=== PATIENT | male | born 1995 | race Caucasian/White ===

== ENCOUNTER 2025-01-10 16:32 | Emergency (ER) | payer OTHER, SELFPAY ==
[2025-01-10 16:38] VITALS: BP 143/89; PULSE 81; RESP 16; TEMP 36.6; O2SAT 98
[2025-01-10 16:46] VITALS: BP 143/89; PULSE 81; RESP 16; TEMP 36.6; O2SAT 98
--- NOTE | 2025-01-10 17:30 | W.ED.GENAD ---
Discharge Plan Disposition Patient Disposition: [facility] Condition: Stable Discharge Details Clinical Impression: Encounter for prophylactic administration of rabies immune globulin, Bitten by raccoyamileth almendarez Primary Care Provider: Unknown,Unknown ED Provider: Lynne Martini Discharge Instructions Instructions: Animal Bites ED Additional Instructions: You were seen in the emergency today for evaluation after having been bitten by a raccoon several months ago. In our department had a full physical examination performed which was reassuring. You received your first rabies vaccine as well as your dose of rabies immunoglobulin. You will require repeat doses of the vaccine on the following dates: Monday, January 13 (day 3) January 17 (day 7) Monday, January 24 (day 14). I have placed an order for these repeat doses to be given in our infusion clinic at the hospital. If your [facility] is able to acquire doses of the rabies vaccine you can instead receive it on these dates at that location. Please follow-up with your primary care provider in the next few days to discuss this visit and any symptoms that change, worsen, or persist. Thank you for allowing us to be part of your care. HPI General Mode of arrival: ambulatory. Date/Time Provider Initiated Documentation: 01/10/25 16:49. Limitations to Documentation: no limitations. Information obtained by: patient, police and old records reviewed. HPI Narrative: This is a 29-year-old male patient presenting for evaluation for rabies prophylaxis after raccoon bite. The patient reports that he was bitten by a raccoon 4 months ago, this is a raccoon that resides inside his home, was shot and killed by police. The bite and scratch wounds on his left hand and forearm have completely healed, without difficulty. The patient was recently incarcerated, and was evaluated at the [facility]. They discussed the patient's case with an global creative chairman at the [place] [facility], who recommended presenting to the ER for postexposure rabies prophylaxis given that rabies can incubate in the system for up to a year. The patient reports that he is not experiencing any neurologic symptoms such as weakness or numbness, denies headache, vision changes, fever or chills. He is in his normal state of health without acute concern today. General Stated Complaint: GenMedical JANAY: 4 Exam Narrative Exam Narrative: Gen: Awake and alert, in no apparent distress HEENT: Non-icteric sclera, PERRL, EOMs full Neck: Supple Lungs: No apparent respiratory distress, normal respiratory effort. CV: Appears well perfused, strong distal pulses Abdomen: Non-distended MSK: Moves 4 extremities without apparent limitation in ROM Skin: Visualized skin without rashes, cyanosis. The patient has scarring consistent with scratches and bites of the left hand and forearm, well-healed Neuro: Normal Gait, no obvious focal deficits or facial asymmetry. Speaks in full, clear sentences. Psych: Appropriate for situation. Course Vital Signs Vital signs: Vital Signs Temperature 36.6 C 01/10/25 16:38 Pulse 81 01/10/25 16:38 Respiratory Rate 16 01/10/25 16:38 Blood Pressure 143/89 H 01/10/25 16:38 Pulse Oximetry 98 01/10/25 16:38 Temperature 36.6 C 01/10/25 16:46 Pulse 81 01/10/25 16:46 Respiratory Rate 16 01/10/25 16:46 Blood Pressure 143/89 H 01/10/25 16:46 Pulse Oximetry 98 01/10/25 16:46 Pain Level 0 01/10/25 16:46 Medical Decision Making This is a 29-year-old male patient presenting for evaluation for postexposure prophylaxis for rabies after raccoon bite several months ago. Differential includes but is not limited to rabies exposure, though I note no concerning symptoms for development of rabies at this time. The wounds are appropriately healed and I note no evidence for infection such as cellulitis, abscess, etc. The patient has no systemic symptoms suggestive of bacteremia or sepsis. We will provide the patient with weight-based dosing of the rabies immunoglobulin, as well as his first vaccine. I did place orders for the remainder of the vaccine series to be completed in the infusion clinic, though certainly if the infirm[facility] at the [facility] facility is able to obtain the vaccines those doses could be administered there. I shared this information with the nurse on staff at the infirmary. At this time, the patient has had a full medical evaluation and is safe for discharge to home. They are hemodynamically stable, ambulatory, and tolerating PO. They are understanding of the follow-up plan and return precautions. They left our facility without incident. Lynne aMrtini MD PFSH All Active Problems (Updated 01/10/25 @ 17:58 by Lynne Martini MD) Bitten by yamileth anaya (Acute) Encounter for prophylactic administration of rabies immune globulin (Acute) Social History Smoking risk assessment performed?: No Alcohol Intake: former Substance use type: opiates Details: former Housing: other
[2025-01-10] MEDS: Rabies Immune Globulin 1,500 UNIT/5 ML VIAL 1500 UNITS IM (17:54)
[2025-01-10] MEDS: Rabies vaccine (PCEC)/PF 2.5 UNITS/ML VIAL IM (17:55)
--- NOTE | 2025-01-13 07:40 | NUR.NOTE ---
Accessed Pt chart to check the dates and times for his rabies vaccinations. Returned call to infusion to give name for their records.
== END 2025-01-10 18:32 ==
PROVIDERS: Emergency Provider Emergency Medicine
DX: Z20.3 Contact with and (suspected) exposure to rabies (principal); Z29.14 Encounter for prophylactic rabies immune globulin; W55.51XA Bitten by raccoon, initial encounter; Z23 Encounter for immunization
CPT/HCPCS: 99283; 99284; 90471; 96372; 90375; 90675

== ENCOUNTER 2025-01-13 14:01 | Outpatient (RCR) | payer OTHER, SELFPAY ==
[2025-01-13] MEDS: Rabies vaccine (PCEC)/PF 2.5 UNITS/ML VIAL (14:12)
== END 2025-01-14 23:59 | disposition home or self-care (01) ==
LOC: INF 14:01
PROVIDERS: Visit Provider Emergency Medicine
DX: Z20.3 Contact with and (suspected) exposure to rabies (principal); Z29.14 Encounter for prophylactic rabies immune globulin
CPT/HCPCS: 90471; 90675